=== PATIENT | male | born 1970 | race African-American/Black ===

== ENCOUNTER 2021-01-09 14:22 | Emergency (ER) | payer OTHER | END 2021-01-09 16:09 | disposition home or self-care (01) | LOC: CSHERS 14:22 | DX: R59.0 Localized enlarged lymph nodes (principal); T50.B95A Adverse effect of other viral vaccines, initial encounter; F17.210 Nicotine dependence, cigarettes, uncomplicated; I10 Essential (primary) hypertension | CPT/HCPCS: 99283 ==